=== PATIENT | male | born 1965 | race Caucasian/White ===

== ENCOUNTER → 2020-06-07 | Outpatient (CLI) | payer BC ==
[~2020-06-07] MED LIST: GADOTERATE 5 MMOL/10ML VIAL. INT ART ONE; IOHEXOL 300 MG/ML 50 ML VIAL. INT ART ONE; LIDOCAINE 1% Multi-Dose 20 ML VIAL. ID ONE
--- NOTE | 2020-06-07 16:08 | KCIC ---
Study: Fluoroscopically guided arthrogram of the right shoulder joint for MRI Indication: Chronic right shoulder pain. Previous shoulder surgery. Contrast: Approximately 2 cc Omnipaque 300; 0.1 cc Dotarem Technique: A timeout was performed prior to beginning the procedure in order to confirm patient identity and laterality of the injection. The risks, benefits and alternatives of the procedure were discussed. Utilizing sterile technique, fluoroscopic guidance and local anesthesia with 1% lidocaine, the right shoulder joint was accessed utilizing a 22-gauge, 3.5" spinal needle. Confirmation of needle position was obtained with a small amount of radiopaque contrast. Subsequently, approximately 12 cc of a mixture containing 10 cc saline, 5 cc lidocaine and 0.1 cc Dotarem was injected. There were no immediate post procedure complications. Fluoroscopy time: 27 seconds Number of images obtained: 1 Impression: Technically successful fluoroscopic guided arthrogram of the right shoulder joint without immediate postprocedure complication. Electronically signed by: ANGELINE TIRADO MD (06/07/2020 4:06 PM) [id number]
--- NOTE | 2020-06-07 17:46 | KCIC ---
STUDY: MRI arthrogram of the right shoulder INDICATION: Right shoulder pain. Prior biceps tenodesis. COMPARISON: None available. TECHNIQUE: Multiplanar MR imaging of the right shoulder performed after the intra-articular injection of contrast material. The injection portion of the procedure is detailed in a separate report. FINDINGS: AC joint: Mild/moderate AC joint arthrosis with articular surface remodeling and capsular hypertrophy. There is contact and slight effacement of the supraspinatus at the myotendinous junction. Contrast-containing fluid distends the subacromial subdeltoid bursa. Rotator cuff: Full-thickness tear of the supraspinatus at the footprint just posterior to the leading edge. At the bursal aspect, the tear gap measures 7 mm but the articular sided fibers are retracted more medially by up to 15 mm, image 12 series 6. The region of full-thickness tearing measures approximately 7 mm AP but the tear continues a few millimeters more posteriorly as an intermediate grade, 50 percent cross-sectional thickness, articular sided tear as seen on image 13 series 6. Background supraspinatus tendinosis. The infraspinatus and teres minor are intact. Subscapularis tendinosis and low-grade partial thickness articular sided tearing at the insertion. Normal bulk and signal of the supraspinatus, infraspinatus and subscapularis. Mild teres minor fatty infiltration/atrophy and very faint teres minor edema, image 17 series 7. Labrum: The superior aspect of the labrum is absent in the setting of biceps tenodesis. Portions of the upper half of the labrum are blunted as well. Long head biceps tendon: Nonvisualized long biceps tendon in keeping with prior tenodesis. Cartilage: No full-thickness chondral defect. Bones: No acute osseous abnormality. Miscellaneous: It appears as if a defect in the rotator interval is allowing for extra-articular extension of injected contrast as well, image 13 series 5. Impression: 1. Full-thickness tear of the supraspinatus at the footprint just posterior to the leading edge measuring 7 mm AP. Differential retraction of the bursal and articular sided fibers with measurements provided in the body the report. 2. Nonvisualized long head biceps tendon and absence of the superior labrum in keeping with prior tenodesis. 3. Subscapularis tendinosis and low-grade articular sided tearing of the insertional fibers. Muscular bulk is mostly maintained but there is mild atrophy/fatty infiltration as well as mild edema of the teres minor often seen with denervation. 4. Contrast distends the subacromial subdeltoid bursa in part related to the supraspinatus tear but there does appear to be a defect of the rotator interval. This could either be surgically induced or from a tear (image 13 series 5). Electronically signed by: ANGELINE TIRADO MD (06/07/2020 5:44 PM) [id number]
== END | disposition home or self-care (01) ==
LOC: KCIC 13:54
PROVIDERS: ATTEND Physician Assistant
DX: M25.511 Pain in right shoulder (principal); Z98.890 Other specified postprocedural states
CPT/HCPCS: 73040; 73222; A9575; J3490; Q9967